=== PATIENT | male | born 1965 | race Caucasian/White ===

== ENCOUNTER 2022-03-10 16:16 | Emergency (ER) | payer BC, SELFPAY ==
[2022-03-10 16:30] VITALS: BP 166/110; PULSE 83; RESP 18; TEMP 36.7; O2SAT 96; BMI 31.0
[2022-03-10] MEDS: ketorolac 30 mg/mL INJ IM (17:16)
--- NOTE | 2022-03-10 23:08 | ED_ITS ---
HPI - Dental/Oral General: Chief complaint: Dental/Oral Stated complaint: Head feels swollen, tooth pain Time Seen by Provider: 03/10/22 16:47 History of Present Illness: Patient reports that he cracked his right upper back tooth a couple of months ago. He reports he is not admitted to the dentist yet. He reports that yesterday and today he has had significant pain on the right side of his jaw. He denies any fever or chills. He reports some foul drainage in his mouth. Associated symptoms: Denies fever(s) Review of Systems Const: Denies: fever(s) or chills ENMT: Reports: dental pain Card: Denies: chest pain or palpitations Resp: Denies: dyspnea or non-productive cough Physical Exam Const: COMMON NORMALS: no acute distress, patient oriented x3 and alert HENMT: TEETH & GINGIVA IMAGES: 1. Tooth appears decayed and possibly broken. 2. Gingiva appears erythematous and slightly swollen. No fluctuant drainable abscess appreciated OTHER: Patient has numerous decayed teeth Neck/C-Spine: COMMON NORMALS: no JVD Lymph: LYMPHATIC: lymphadenopathy (Anterior cervical lymphadenopathy) Resp: COMMON NORMALS: normal respiratory effort, No use of accessory muscles and clear to auscultation bilaterally AUSCULTATION: clear to auscultation bilaterally Cardio: COMMON NORMALS: no JVD, regular rate, regular rhythm, S1 normal heart sound present, S2 normal heart sound present and No murmurs present (Cardio) RATE: regular rate RHYTHM: regular rhythm HEART SOUNDS: S1 normal heart sound present and S2 normal heart sound present Neuro: COMMON NORMALS: patient oriented x3 SENSORIUM/ORIENTATION: Yes alert Course Vital Signs: Vital signs: Vital Signs Temperature 98.1 F 03/10/22 16:30 Pulse Rate 83 03/10/22 16:30 Respiratory Rate 18 03/10/22 16:30 Blood Pressure 166/110 03/10/22 16:30 Pulse Oximetry 96 03/10/22 16:30 Oxygen Delivery Ms thod 03/10/22 16:30 [facility] - Dental/Oral Medical Decision Making Patient is in today for dental pain. He has had a broken decayed tooth for a couple of months that has suddenly started causing him a lot of pain. He denies fever or chills. He does have poor dentition with decay and fractured teeth noted. There is some erythema and swelling of the gingiva surrounding the posterior right upper jaw teeth. There is no fluctuant drainable abscess appreciated. We will start patient on oral antibiotics. Toradol injection provided today in ER to help with pain control and swelling. Advised patient to follow-up with dental LOREN. Return to the ER for any new or worsening symptoms Discharge Plan Discharge Patient Disposition: Home Clinical Impression: Dental abscess Condition: Stable Prescriptions: New amoxicillin-pot clavulanate 875-125 mg tablet 1 tab PO BID 10 Days Qty: 20 0RF No Action meloxicam 7.5 mg tablet 7.5 mg PO DAILY Qty: 30 0RF aspirin 81 mg tablet,delayed release (DR/EC) 81 mg PO DAILY Qty: 30 0RF losartan 50 mg tablet 50 mg PO DAILY Qty: 30 0RF Discharge Orders: Discharge ED (Routine); Ordered 03/10/22 Ordered By: Selam Junior Referrals: Chucho Whitfield, MACHINE CLERICAL VERIFIER [Primary Care Provider] - Discharge Diet: Usual diet Discharge Activity: Resume usual activity Patient Instructions: Dental Abscess (ED) Activity Restrictions/Additional Instructions: Take antibiotics as directed. Do warm salt water gargles. You were given Toradol today in the ER. No more ibuprofen the rest of the stay. Call today or tomorrow to try and set up an appointment with a dentist LOREN. Return to the ER for any new or worsening symptoms. Coding Level of Care Code ED Heat Treating Operator for Mauri Landaverde
== END 2022-03-10 17:23 | disposition home or self-care (01) ==
PROVIDERS: Emergency Provider Nurse Practitioner Family; PCP Clinical Nurse Specialist Adult Health
DX: K04.7 Periapical abscess without sinus (principal); Z79.82 Long term (current) use of aspirin
CPT/HCPCS: 96372; 99284; J1885

== ENCOUNTER → 2022-05-31 10:45 | Outpatient (BNVA) | payer BC, SELFPAY | PROVIDERS: PCP Clinical Nurse Specialist Adult Health; Visit Provider Clinical Nurse Specialist Adult Health | DX: I10 Essential (primary) hypertension (principal) | CPT/HCPCS: 80053; 80061; 85025 ==

== ENCOUNTER 2022-11-06 21:49 | Emergency (ER) | payer BC, SELFPAY ==
[2022-11-06 22:02] VITALS: BMI 34.2
[2022-11-06 22:04] VITALS: BP 150/88; PULSE 76; RESP 18; TEMP 36.7; O2SAT 95
--- NOTE | 2022-11-06 22:12 | ED_ITS ---
HPI - Back Pain/Injury General: Chief Complaint: Back Pain/Injury Stated Complaint: Hip and Back pain Time Seen by Provider: 11/06/22 22:11 History of Present Illness: 57-year-old male patient comes in today with worsening back pain for the last week. Patient appears nontoxic. Patient appears no acute distress. Patient has a chronic history of back pain but states over the last 7 days he is just really been struggling with his pain in his back. 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 Patient also has history of reflux and hypertension. Associated symptoms: Deny fever(s) Review of Systems Const: Denies: fever(s) Card: Denies: chest pain Resp: Denies: dyspnea Musc: Denies: neck pain or back pain PFSH ED PFSH: Medical History Essential hypertension Generalized osteoarthritis GERD (gastroesophageal reflux disease) Insomnia Morbid obesity Tobacco dependence Surgical History No pertinent past surgical history Family History Other Cancer Hypertension Social History Smoking and tobacco status: current every day smoker cigarettes Packs smoked per day: 0.5 Alcohol intake: current Substance/Drug Use: former Date of last use: marijuana Physical Exam Const: COMMON NORMALS: alert HENMT: COMMON NORMALS: normocephalic HEAD & SCALP: normocephalic Resp: COMMON NORMALS: normal respiratory effort Cardio: COMMON NORMALS: regular rate RATE: regular rate Back/Pelvis: LUMBAR SPINE/LOWER BACK: No lumbar spinal tenderness and Yes paraspinal muscle tenderness Extremity: COMMON NORMALS: normal to inspection Neuro: SENSORIUM/ORIENTATION: Yes alert Skin: COMMON NORMALS: turgor normal GENERAL SKIN EXAM: turgor normal Course Vital Signs: Vital signs: Vital Signs Temperature 98.0 F 11/06/22 22:04 Pulse Rate 76 11/06/22 22:04 Respiratory Rate 18 11/06/22 22:04 Blood Pressure 150/88 11/06/22 22:04 Pulse Oximetry 95 11/06/22 22:04 Oxygen Delivery Me thod Room Air 11/06/22 22:04 MDM - Back Pain/Injury Medical Decision Making 57-year-old male patient comes in today with complaints of low back pain. On exam patient has muscle tenderness in his lower back. Sensation is normal distally. Negative leg lift test. Vital signs are normal. Differential diagnosis includes but not limited to lumbar strain, intervertebral disc disease, facet arthritis, lumbar radiculopathy. Patient requested x-rays of his back which showed degenerative joint disease of the lumbar spine. No new fractures were noted. Reviewed exam with patient recommended increasing the dose of celecoxib to 200 mg twice a day from 50 mg twice a day. Patient was also recommended to have hydrocodone for severe pain as needed. Patient should do gentle range of motion exercises and stretches. Patient should follow-up with primary care for further evaluation and treatment. Patient reported understanding. Discharge Plan Discharge Patient Disposition: Home Clinical Impression: Degenerative joint disease (DJD) of lumbar spine Qualifiers: Spinal osteoarthritis complication: unspecified spinal osteoarthritis Qualified Code(s): M47.816 - Spondylosis without myelopathy or radiculopathy, lumbar region Condition: Stable Prescriptions: New celecoxib 200 mg capsule 200 mg PO BID Qty: 60 0RF hydrocodone-acetaminophen 5-325 mg tablet 1 tab PO BID PRN (Reason: pain (scale score 7-10)) Qty: 10 0RF No Action amlodipine 10 mg tablet 10 mg PO DAILY Qty: 90 3RF losartan 100 mg tablet 100 mg PO DAILY Qty: 90 3RF pantoprazole [Protonix] 40 mg tablet,delayed release (DR/EC) 40 mg PO DAILY Qty: 90 3RF celecoxib [Celebrex] 50 mg capsule 50 mg PO BID Qty: 60 5RF hydrochlorothiazide 25 mg tablet 25 mg PO DAILY Qty: 90 3RF baclofen 20 mg tablet 20 mg PO DAILY Qty: 30 0RF trazodone 150 mg tablet 150 mg PO .qhs Qty: 90 3RF aspirin 81 mg tablet,delayed release (DR/EC) 81 mg PO DAILY Qty: 30 0RF Discharge Orders: Discharge ED (Routine); Ordered 11/06/22 Ordered By: Baljeet Lanier Referrals: Chucho Whitfield PROPERTY FIELD ADJUSTER [Primary Care Provider] - Discharge Diet: Usual diet Discharge Activity: Increase activity as tolerated Patient Instructions: Acute Low Back Pain (ED) Activity Restrictions/Additional Instructions: Maintain activity as normal. Gentle stretching and range of motion exercises. Drink plenty of water with medication. Increase celecoxib to 200 mg twice a day for pain and inflammation. Follow-up with primary care for further evaluation and treatment. Return to ER for new concerns. Stand Alone Forms: Work/School Release Coding Level of Care Code ED Supervisor Insecticide for Mauri Landaverde
--- NOTE | 2022-11-06 22:19 | XRR_ITS ---
PROCEDURE INFORMATION: Exam: XR Lumbosacral Spine Exam date and time: 11/06/2022 10:45 PM Age: 57 years old Clinical indication: Pain; Lumbago with sciatica; Bilateral; Additional info: Back pain TECHNIQUE: Imaging protocol: Radiologic exam of the lumbosacral spine. Views: 2 or 3 views. COMPARISON: No relevant prior studies available. FINDINGS: Bones/joints: 5 [id number] vertebral bodies. Mild degenerative changes of the right and left sacroiliac joints. .Vertebrae: Vertebral body height is maintained. No subluxation. Normal bone mineralization. Small/moderate marginal osteophytes at all visualized spinal levels. Mild loss of disc space height at L3-L4 and L4-L5. Vacuum phenomenon at L4-L5. Facet sclerosis and hypertrophy at all lumbar spine levels, most significant at L3-L4, L4-L5, and L5-S1. No acute fracture. Soft tissues: No paravertebral soft tissue abnormality. No radiopaque foreign body. Vasculature: Atherosclerotic changes in the visualized arteries. XR/XR lumbar spine 2-3V* [id number] IMPRESSION: 1. No acute fracture of the lumbar spine. CT scan would be recommended if there is continuing clinical concern for fracture. 2. Multilevel degenerative changes of varying severity in the visualized spine. 3. Incidental/nonacute findings are listed in the report.
[2022-11-06] MEDS: dexamethasone 10 mg/mL INJ IM (22:31)
[2022-11-06] MEDS: ketorolac 30 mg/mL INJ IM (22:34)
[2022-11-06 23:10] VITALS: BP 128/99; PULSE 96; RESP 14; O2SAT 95
== END 2022-11-06 23:11 | disposition home or self-care (01) ==
PROVIDERS: Emergency Provider Nurse Practitioner Family; PCP Clinical Nurse Specialist Adult Health
DX: M47.816 Spondylosis without myelopathy or radiculopathy, lumbar region (principal); Z79.82 Long term (current) use of aspirin; I10 Essential (primary) hypertension; F17.210 Nicotine dependence, cigarettes, uncomplicated
CPT/HCPCS: 72100; 96372; 99284; J1100; J1885

== ENCOUNTER 2022-11-29 07:34 | Outpatient (CLI) | payer BC, SELFPAY ==
--- NOTE | 2022-11-29 08:00 | MR_ITS ---
WS: [id number] MRI LUMBAR SPINE NONCONTRAST HISTORY: low back pain COMPARISON: None available. TECHNIQUE: Sagittal and axial multisequence imaging is submitted. Straightening of the normal cervical lordosis. Mild disc bulging and osteophyte development at C3-4 c ontacting the ventral cord. No stenosis. L4 anterolisthesis by 6 mm. No fractures or marrow edema. Disc spaces and vertebral body heights are well-preserved. Conus terminates normally at L1-2 disc level. T11-12 and T12-L1: Mild foraminal narrowing due to disc and facet disease. L1-L2: Bilateral facet joint arthritis, LEFT greater than RIGHT. Mild to moderate bilateral foraminal stenosis, slightly greater on the LEFT. L2-L3: Mild annular disc bulging with mild ligamentum flavum and facet joint arthritis. Mild subartic ular recess and foraminal encroachment. Slightly greater stenosis involving the LEFT foramen. L3-L4: Mild annular disc bulging and osteophytic ridging. Facet joint arthritis and ligamentum flavum hypertrophy. Mild encroachment upon the ventral thecal sac and the subarticular recesses. Moderate b ilateral foraminal and subarticular recess encroachment. L4-L5: Diffuse annular disc bulging with marked facet joint arthritis and ligamentum flavum hypertrop hy. Nerve roots are becoming clumped within the thecal sac. Severe facet joint arthritis. There is se loan central and bilateral foraminal stenosis. Complete effacement of fat in the LEFT foramen. Fluid in the facet joints. L5-S1: Mild annular disc bulging with marked facet joint arthritis. Increase fluid in the facet joint s. Severe bilateral foraminal stenosis. There is disc contact on the L5 and S1 nerve roots. MR/MR lumbar spine wo con* [id number] IMPRESSION: 1. Advanced facet joint arthritis at L4-5 and L5-S1. 2. L4-5: Severe central and bilateral foraminal stenosis due to combination of factors as described above. 3. Severe bilateral foraminal stenosis at L5-S1 with disc contacting the L5 an d S1 nerve roots. 4. Moderate bilateral foraminal and subarticular recess stenosis at L3-4. 5. Mild to moderate bilateral foraminal stenosis at L1 to slightly greater on the LEFT. 6. Mild subarticular recess and foraminal stenosis at L2-3, greatest on the LE FT.
== END 2022-11-29 07:35 | disposition home or self-care (01) ==
LOC: RAD 07:40
PROVIDERS: PCP Clinical Nurse Specialist Adult Health; Visit Provider Clinical Nurse Specialist Adult Health
DX: M47.817 Spondylosis without myelopathy or radiculopathy, lumbosacral region (principal); M48.07 Spinal stenosis, lumbosacral region
CPT/HCPCS: 72148

== ENCOUNTER → 2022-12-27 08:10 | Outpatient (BNVA) | payer BC, SELFPAY | PROVIDERS: PCP Clinical Nurse Specialist Adult Health; Referring Provider Clinical Nurse Specialist Adult Health; Visit Provider Orthopaedic Surgery | DX: M48.061 Spinal stenosis, lumbar region without neurogenic claudication (principal); M43.16 Spondylolisthesis, lumbar region; M47.817 Spondylosis without myelopathy or radiculopathy, lumbosacral region | CPT/HCPCS: 72110 ==

== ENCOUNTER → 2023-11-01 07:34 | Outpatient (BNVA) | payer BC, SELFPAY | PROVIDERS: PCP Clinical Nurse Specialist Adult Health; Visit Provider Clinical Nurse Specialist Adult Health | DX: I10 Essential (primary) hypertension (principal); Z12.11 Encounter for screening for malignant neoplasm of colon | CPT/HCPCS: 80053; 80061; 85025 ==

== ENCOUNTER 2024-10-24 11:25 | Outpatient (CLI) | payer BC, SELFPAY ==
--- NOTE | 2024-10-24 11:38 | XR_ITS ---
WS: [id number] Left hip, AP and frog-leg views, 10/24/2024 Clinical Data: Hip pain Comparison: None. Findings: No fractures or dislocations are seen. The left hip shows no erosion, sclerosis, narrowing or cyst formation. The soft tissues are not remarkable. The adjacent pelvis is normal. XR/XR hip LT 2-3V wo/w pel* [id number] Impression: Negative left hip.
== END 2024-10-24 11:26 | disposition home or self-care (01) ==
PROVIDERS: PCP Clinical Nurse Specialist Adult Health; Visit Provider Registered Nurse Neonatal Intensive Care
DX: M25.559 Pain in unspecified hip (principal)
CPT/HCPCS: 73502

== ENCOUNTER → 2024-12-25 13:28 | Outpatient (BNVA) | payer BC, SELFPAY | PROVIDERS: PCP Clinical Nurse Specialist Adult Health; Visit Provider Clinical Nurse Specialist Adult Health | DX: Z00.00 Encounter for general adult medical examination without abnormal findings (principal); I10 Essential (primary) hypertension; M15.9 Polyosteoarthritis, unspecified; E66.01 Morbid (severe) obesity due to excess calories; G62.9 Polyneuropathy, unspecified | CPT/HCPCS: 80053; 80061; 83036; 85025; G0103 ==